=== PATIENT | female | born 1980 ===

== ENCOUNTER 2019-02-20 07:45 | Inpatient (IN) | payer OTHER ==
[~2019-02-20] VITALS: Ht 180.3 cm; Wt 89.8 kg
== END 2019-03-01 11:12 | disposition home or self-care (01) | DRG 660 ==
LOC: O/R 07:45 → SURG 02-25 05:00 → O/R 02-25 05:00 → SURH 02-25 07:00 → SURG 02-25 12:01
PROVIDERS: ADMIT Urology
PROC: 0TJ98ZZ Inspection of Ureter, Via Natural or Artificial Opening Endoscopic (ICD-10-PCS; 2019-02-25)
PROC: 0T170ZB Bypass Left Ureter to Bladder, Open Approach (ICD-10-PCS; principal; 2019-02-25 07:00)
DX: N35.82 Other urethral stricture, female (principal); N13.1 Hydronephrosis with ureteral stricture, not elsewhere classified; I97.89 Other postprocedural complications and disorders of the circulatory system, not elsewhere classified

== ENCOUNTER 2019-05-02 09:10 | Outpatient (CLI) | payer OTHER | END 2019-05-02 09:12 | disposition home or self-care (01) | LOC: SONOGRAMA 09:10 | DX: R31.1 Benign essential microscopic hematuria (principal) ==

== ENCOUNTER 2019-05-02 10:01 | Outpatient (CLI) | payer OTHER | END 2019-05-02 10:07 | disposition home or self-care (01) | LOC: LAB 10:01 | DX: N30.00 Acute cystitis without hematuria (principal) ==